=== PATIENT | male | born 1970 | race Caucasian/White ===

== ENCOUNTER 2021-09-12 19:28 | Emergency (ER) | payer OTHER, SELFPAY ==
[2021-09-12 19:56] VITALS: BP 160/103; PULSE 86; RESP 18; TEMP 36.6; O2SAT 98; BMI 33.9
--- NOTE | 2021-09-12 20:23 | W.ED.BACK ---
HPI - Back Pain/Injury General: Chief Complaint: Back Pain/Injury Stated Complaint: Injury Back Popped\Pain Time Seen by Provider: 09/12/21 20:10 History of Present Illness: Patient is a 51-year-old male comes to the ED with lower back pain. Pain started a couple hours prior to arrival. He states he sneezed and then felt a pop and stretch in his left lower lumbar region. He now has 8 out of 10 pain in his left lower lumbar. Pain worsens with any movement. Denies any bladder or bowel incontinence, pelvic anesthesia, weakness to lower extremities. Denies any pain radiating down the legs. Associated symptoms: Deny abdominal pain, chills, dysuria, fatigue, fever(s), hematuria, nausea or vomiting Review of Systems Const: Denies: fever(s), chills or fatigue Eyes: Denies: change in vision or eye discomfort ENMT: Denies: throat pain, odynophagia, nasal discharge or nasal congestion Card: Denies: chest pain, palpitations, edema, swelling of feet/ankles, dyspnea on exertion or orthopnea Resp: Denies: dyspnea, productive cough or non-productive cough GI: Denies: abdominal pain, nausea, vomiting, diarrhea, constipation or hematochezia : Denies: flank pain, difficulty urinating, dysuria or hematuria Musc: Reports: back pain; Denies: neck pain or extremity swelling Skin/Breast: Denies: rash or new lesions Neuro: Denies: headache(s), numbness in extremities or weakness in extremities [facility] ED PFSH: Medical History No pertinent family history Surgical History No pertinent past surgical history Physical Exam Const: COMMON NORMALS: no acute distress, patient oriented x3 and alert GENERAL APPEARANCE: cooperative and comfortable HENMT: COMMON NORMALS: normocephalic HEAD & SCALP: normocephalic MOUTH: Normal oral and palatal mucosa present THROAT: posterior oropharynx normal and uvula midline Neck/C-Spine: COMMON NORMALS: supple GENERAL: Yes normal visual inspection Resp: COMMON NORMALS: normal respiratory effort, No retractions, No use of accessory muscles and clear to auscultation bilaterally AUSCULTATION: clear to auscultation bilaterally Cardio: COMMON NORMALS: regular rate, regular rhythm, S1 normal heart sound present, S2 normal heart sound present, No gallops present (Cardio), No clicks present (Cardio), No murmurs present (Cardio) and Peripheral pulses 2+ throughout RATE: regular rate RHYTHM: regular rhythm HEART SOUNDS: S1 normal heart sound present and S2 normal heart sound present PERIPHERAL PULSES: Peripheral pulses 2+ throughout GI: COMMON NORMALS: Normal to inspection, nondistended, normoactive bowel sounds present, Soft to palpation, non-tender and no masses PALPATION: Yes Soft to palpation : COMMON NORMALS: Yes no CVA tenderness BLADDER/KIDNEY EXAM: Yes no CVA tenderness Back/Pelvis: COMMON NORMALS: no CVA tenderness LUMBAR SPINE/LOWER BACK: Yes pain with ROM, No lumbar spinal tenderness and Yes paraspinal muscle tenderness Lumbar paraspinal muscle tenderness: left left lumbar paraspinal muscle tenderness: L3 and L4 Extremity: COMMON NORMALS: normal to inspection Neuro: COMMON NORMALS: patient oriented x3 and moves all extremities SENSORIUM/ORIENTATION: Yes alert Skin: GENERAL SKIN EXAM: dry skin Course Vital Signs: Vital signs: Vital Signs Temperature 97.8 F 09/12/21 19:56 Pulse Rate 86 09/12/21 19:56 Respiratory Rate 18 09/12/21 19:56 Blood Pressure 160/103 09/12/21 19:56 Pulse Oximetry 98 09/12/21 19:56 MDM - Back Pain/Injury Medical Decision Making Patient is a 51-year-old male comes to the ED after having a lower back strain. Injury occurred earlier today. Patient sneezed and felt a pull and pop in his left lower back. Denies any cauda equina symptoms. Pain worsens with any movement. Denies any dysuria or hematuria. Vitals stable. Patient has left lower lumbar paraspinal tenderness. No spinal tenderness noted. Patient was given a dose of Toradol and Norflex while here in the ED. Patient was stable for discharge home and sent home with a prescription for Celebrex and methocarbamol. Return to ED precautions given. Patient was told to follow-up with his PCP in 5 to 7 days reevaluation. Patient understood and agreed with plan. Discharge Plan Discharge Patient Disposition: Home Clinical Impression: Strain of lumbar region Qualifiers: Encounter type: initial encounter Qualified Code(s): S39.012A - Strain of muscle, fascia and tendon of lower back, initial encounter Condition: Stable Prescriptions: New methocarbamol 750 mg tablet 750 mg PO Q8H PRN (Reason: muscle spasm and pain) Qty: 20 0RF Celebrex 100 mg capsule 100 mg PO BID PRN (Reason: pain) Qty: 20 0RF Discharge Orders: Discharge ED (Routine); Ordered 09/12/21 Ordered By: Ho Kumar Discharge Diet: Regular Discharge Activity: Increase activity as tolerated Activity Restrictions/Additional Instructions: Follow-up with medical provider as directed in 5 to 7 days for reevaluation.Take medications as prescribed. Rest, apply cold pack on sore area of back. Limit lifting for the next couple days. Massage lower back muscle daily along with stretching lower back daily. return to the ER or your medical provider if condition worsens. Please read and understand discharge instructions. Thank you for choosing [facility] for your healthcare needs today. Please realize this is an emergency room and that we are providing you with a medical screening exam and this may not be complete and all inclusive of all the testing and or work up that you may need to determine your ailment or severity of your illness. It is very important that you follow up as instructed or that you return to the Emergency Department should you have concerns or if your condition changes or worsens in any way. Coding Level of Care Code ED [employer] for Ren[facility] Gomez Exam Comprehensive
[2021-09-12] MEDS: orphenadrine 30 mg/mL Inj 2 mL 60 MG IM (20:27)
[2021-09-12] MEDS: ketorolac 60 mg/2 mL INJ IM (20:27)
== END 2021-09-12 20:33 | disposition home or self-care (01) ==
PROVIDERS: Emergency Provider Physician Assistant
DX: S39.012A Strain of muscle, fascia and tendon of lower back, initial encounter (principal); X50.9XXA Other and unspecified overexertion or strenuous movements or postures, initial encounter
CPT/HCPCS: 96372; 99283; J1885; J2360